=== PATIENT | male | born 1985 | race Hispanic/Latino ===

== ENCOUNTER → 2018-08-20 | Day surgery (SDC) | payer BC ==
[~2018-08-20] MED LIST: BIOTIN2500 MCG PO; FENTANYL CITRATE/PF 100MCG/2 ML INJ ONE; HYOSCYAMINE SULFATE 0.5 MG/ML INJ ONE; MIDAZOLAM HCL 2 MG/2 ML VIAL ONE; TRUVADA 200 MG1 EACH PO; VIT E PO
[2018-08-20 16:40] VITALS: BP 102/71
--- NOTE | 2018-08-20 16:42 | Operative Report ---
DATE OF PROCEDURE: August 20, 2018 REFERRING PHYSICIAN: Dr. Bossman Mortensen. PROCEDURE PERFORMED: Colonoscopy with polypectomy and biopsies. INDICATIONS FOR COLONOSCOPY: Rectal bleeding. MEDICATION: Patient was done under MAC. Please see anesthesiologist's note. PROCEDURE: With patient in the left lateral decubitus position, a flexible fiberoptic Olympus colonoscope was inserted into the rectum with ease and advanced all the way to the cecum. It was then withdrawn slowly. Mucosa overlying the cecum, ascending colon, transverse colon appeared to be within normal limits. One polyp was hot biopsied from the descending colon. One polyp was hot biopsied from the sigmoid colon. A large approximately 1.5 cm ulcer with heaped up margins was noted in the distal rectum just above the dentate line. Biopsies were obtained and sent to stain for CMV. The scope was then retroflexed into the distal rectum and small internal hemorrhoids were noted, none of which was actively bleeding. The scope was then straightened out. It was subsequently withdrawn. Patient tolerated the procedure well. IMPRESSIONS 1. Descending colon polyp, hot biopsied. 2. Sigmoid colon polyp, hot biopsied. 3. Rectal ulcer, approximately 1.5 cm in size, with heaped up margins. Biopsies obtained and sent to stain for cytomegalovirus. 4. Internal hemorrhoids, none actively bleeding. PLAN: Follow up histology. Timing of followup colonoscopy if necessary pending pathology report. Job#: [id number] TA cc:BOSSMAN MORTENSEN MD,
== END | disposition home or self-care (01) ==
LOC: OR 12:26
PROVIDERS: ATTEND Internal Medicine Gastroenterology
DX: K51.20 Ulcerative (chronic) proctitis without complications (principal); D12.3 Benign neoplasm of transverse colon; K59.00 Constipation, unspecified; K64.8 Other hemorrhoids
CPT/HCPCS: 45380; 45384; J1980; J2250

== ENCOUNTER 2018-09-11 14:40 | Emergency (ER) | payer BC ==
[~2018-09-11] VITALS: Ht 170.2 cm; Wt 79.8 kg
[~2018-09-11 14:40] MED LIST changes: -FENTANYL CITRATE/PF 100MCG/2 ML INJ ONE; -HYOSCYAMINE SULFATE 0.5 MG/ML INJ ONE; -MIDAZOLAM HCL 2 MG/2 ML VIAL ONE
[2018-09-11 15:17] LABS: BASOPHILS # (AUTO) 0.1 (0.0-0.1); BASOPHILS % 0.8 % (0.0-1.0); EOSINOPHILS # (AUTO) 0.3 (0.0-0.4); HEMATOCRIT 47.1 % (38.2-49.6); HEMOGLOBIN 15.6 g/dL (14.0-18.0); LYMPHOCYTES # (AUTO) 1.9 (1.0-3.2); LYMPHOCYTES % 30.8 % (18.0-39.1); MEAN CORPUSCULAR HEMOGLOBIN 29.3 pg (28-32); MEAN CORPUSCULAR HGB CONC 33.1 g/dL (31-35); MEAN CORPUSCULAR VOLUME 88.5 fL (81-99); MONOCYTES # (AUTO) 0.6 (0.2-0.8); MONOCYTES % 9.1 % (4.4-11.3); NEUTROPHILS # (AUTO) 3.3 (2.1-6.9); PLATELET COUNT 263 x10e3/uL (140-360); RED BLOOD COUNT 5.32 x10e6/uL (4.3-5.7); RED CELL DISTRIBUTION WIDTH 12.8 % (11.7-14.4)
[2018-09-11 15:23] LABS: INR 0.89; PROTHROMBIN TIME 12.5 seconds (11.9-14.5)
[2018-09-11 15:24] LABS: PARTIAL THROMBOPLASTIN TIME 30.7 seconds (23.8-35.5)
[2018-09-11 15:29] LABS: BLOOD UREA NITROGEN 12 mg/dL (7-26); BUN/CREATININE RATIO 12 (6-25); CALCIUM 9.6 mg/dL (8.4-10.2); CARBON DIOXIDE 29 mmol/L (22-29); CHLORIDE 101 mmol/L (98-107); EST GLOMERULAR FILTRATION RATE > 60 ML/MIN (60-); GLUCOSE 93 mg/dL (74-118); SODIUM 140 mmol/L (136-145)
[2018-09-11 16:48] VITALS: BP 142/79
== END 2018-09-11 17:00 | disposition home or self-care (01) ==
LOC: ER 14:40
DX: K62.5 Hemorrhage of anus and rectum (principal); K64.8 Other hemorrhoids
CPT/HCPCS: 36415; 80048; 85025; 85610; 85730; 99284

== ENCOUNTER → 2018-11-19 | Day surgery (SDC) | payer BC ==
[~2018-11-19] MED LIST changes: +ALIGN4 MG PO; +FENTANYL CITRATE/PF 100MCG/2 ML INJ ONE; +HYOSCYAMINE SULFATE 0.5 MG/ML INJ ONE; +MIDAZOLAM HCL 2 MG/2 ML VIAL ONE; +PROPOFOL IV EMULSION 10 MG/ML 50 ML VIAL ONE; +SIMETHICONE 40 MG/0.6 ML BTL ONE
--- NOTE | 2018-11-19 07:10 | NUR ---
SPIRITUAL CARE - Pre-Surgery Assessment: Pt in bed. Pt reported supportive attention from family and friends. Intervention: I provided pastoral presence, hospitality, and sympathetic listening. I acquainted pt with availability of [employer] systems administrator while hospitalized. Outcome: Pt expressed appreciation for visit. No need for follow up indicated at this time. [facility] Spiritual [facility] Department O: [phone] Pager: [phone] ([phone] number calling from)
[2018-11-19 09:20] VITALS: BP 122/93
--- NOTE | 2018-11-19 11:31 | Operative Report ---
DATE OF PROCEDURE: 11/19/2018 SURGEON: Trevor Kelly MD PROCEDURE: Colonoscopy with biopsies. INDICATIONS FOR COLONOSCOPY: History of bleeding rectal ulcer, colon polyp. MEDICATIONS: The patient was done under MAC, please see anesthesiologist's note. PROCEDURE IN DETAIL: With the patient in left lateral decubitus position, flexible fiberoptic Olympus colonoscope was inserted into the rectum with ease and advanced all the way to the cecum. The scope was then withdrawn slowly, mucosa overlying the cecum, ascending colon and transverse colon appeared to be within normal limits. There was some patchy erythema noted in the distal descending sigmoid and rectum and random biopsies were obtained. The previously described rectal ulcer appeared to be healing well. Biopsies were obtained. The scope was then retroflexed into the distal rectum and the area around the dentate line other than for the healing ulcer appeared to be within normal limits. The scope was then straightened out, it was subsequently withdrawn. The patient tolerated the procedure well. IMPRESSION: 1. Mild proctosigmoiditis. 2. Previously described rectal ulcer, healing well. PLAN: Follow up histology. Initiate VSL#3 one p.o. daily. The patient might benefit from a followup colonoscopy in 3 years considering his history of colon polyp. Trevor Kelly MD [facility] [place] /[id number] cc: Jason Mortensen MD
== END | disposition home or self-care (01) ==
LOC: OR 05:51
PROVIDERS: ATTEND Internal Medicine Gastroenterology
DX: K63.89 Other specified diseases of intestine (principal); K62.6 Ulcer of anus and rectum; K62.5 Hemorrhage of anus and rectum; R19.4 Change in bowel habit; Z86.010 Personal history of colon polyps
CPT/HCPCS: 45380; J1980; J2250; J2704; 45378